=== PATIENT | female | born 1995 | race Caucasian/White ===

== ENCOUNTER 2019-07-29 09:48 | Emergency (ER) | payer BC ==
[~2019-07-29] VITALS: Ht 167.6 cm; Wt 100.0 kg
[2019-07-29 09:51] VITALS: BP 141/99; TEMP 100.1
[2019-07-29] MEDS ORDERED: EFFEXOR XR37.5 MG/CA PO (10:05)
[2019-07-29] MEDS ORDERED: CLEOCIN HCL300 MG PO (10:15)
[2019-07-29 10:24] VITALS: PULSE 81
== END 2019-07-29 10:27 | disposition home or self-care (01) ==
LOC: COL.ER 09:48
DX: N61.0 Mastitis without abscess (principal); F32.9 Major depressive disorder, single episode, unspecified